=== PATIENT | female | born 1965 | race Asian ===

== ENCOUNTER 2017-05-01 09:09 | Day surgery (SDC) | payer OTHER ==
[2017-05-01] MEDS ORDERED: LACTATED RINGERS 1,000 ML IV ONE ×2 (09:23→11:26)
[2017-05-01] MEDS ORDERED: fentaNYL 100 MCG/2 ML VIAL IVP ONE (10:48)
[2017-05-01] MEDS ORDERED: MIDAZOLAM 2 MG/2 ML VIAL IVP ONE (10:48)
[2017-05-01 12:19] VITALS: BP 119/60
== END 2017-05-01 09:10 | disposition home or self-care (01) ==
LOC: SDS 09:09
PROVIDERS: ATTEND Surgery
PROC: 0DBN8ZX Excision of Sigmoid Colon, Via Natural or Artificial Opening Endoscopic, Diagnostic (ICD-10-PCS; principal; 2017-05-01 10:30)
DX: Z12.11 Encounter for screening for malignant neoplasm of colon (principal); D12.5 Benign neoplasm of sigmoid colon; K64.9 Unspecified hemorrhoids; Z83.3 Family history of diabetes mellitus; Z82.3 Family history of stroke; F17.210 Nicotine dependence, cigarettes, uncomplicated
CPT/HCPCS: 45385; J7120; 85025; 88305

== ENCOUNTER 2021-07-07 07:46 | Outpatient (CLI) | payer OTHER ==
--- NOTE | 2021-07-08 08:42 | Mammography Report ---
BILATERAL DIGITAL DIAGNOSTIC MAMMOGRAM 3D/2D: 07/07/2021 CLINICAL: Occasional pain in both breasts. Comparison is made to exams dated: 05/17/2020 mammogram, 09/17/2018 mammogram, 03/21/2017 mammogram, and 06/02/2015 mammogram - [facility]. The tissue of both breasts is extremely dense, which lowers the sensitivity of mammography. No significant masses, calcifications, or other findings are seen in either breast. Bilateral diffuse breast pain. IMPRESSION: NEGATIVE There is no mammographic evidence of malignancy. A 1 year screening mammogram with tomosynthesis is recommended. Exam findings were conveyed to the patient. This exam was interpreted at Station ID: [id number]. NOTE: For mammograms, a report in lay terms will be sent to the patient. Approximately 15% of breast malignancies will not be visualized mammographically. In the management of a palpable breast mass, a negative mammogram must not discourage biopsy of a clinically suspicious lesion. Electronically Signed By: Ganesh Aguilera M.D. slc/:07/07/2021 09:24:54 ACR BI-RADS Category 1: Negative 3341F PARENCHYMAL PATTERN: (VD) - The breast(s) demonstrate(s) extremely dense parenchyma, limiting the sen sitivity of mammography. BI-RADS CATEGORY: (1) - 1 RECOMMENDATION: (ANNUAL) - Recommend routine annual screening mammography. [id number] 1 year screening LATERALITY: (B)
== END 2021-07-07 07:47 | disposition home or self-care (01) ==
LOC: DI 07:46
PROVIDERS: ATTEND Family Medicine
DX: N64.4 Mastodynia (principal)

== ENCOUNTER 2023-11-06 11:21 | Day surgery (SDC) | payer OTHER ==
[2023-11-06] MEDS ORDERED: PROPOFOL 500 MG/50 ML 500 MG/50 ML VIAL ONE (11:43)
[2023-11-06] MEDS ORDERED: LACTATED RINGERS 1,000 ML IV ONE ×2 (11:59→12:43)
--- NOTE | 2023-11-06 12:04 | ANESTHESIA ---
Pre-Anesthesia VS, & Labs - Diagnosis screening - Procedure colonoscopy Vital Signs: Temp Pulse Resp BP Pulse Ox O2 Flow Rate 36.1 C L 73 16 113/77 97 11/06/23 11:32 11/06/23 11:32 11/06/23 11:32 11/06/23 11:32 11/06/23 11:32 Height: 5 ft 2 in Weight (kg): 61.5 kg Body Mass Index: 24.7 BMI Classification: Normal - NPO Other (prep as directed) - Is Patient ?: No Home Medications and Allergies No Known Home Medications 04/27/17 Allergies/Adverse Reactions: Allergies Allergy/AdvReac Type Severity Reaction Status Date / Time No Known Drug Allergies Allergy Verified 11/05/23 13:45 Anes History & Medical History - Anesthetic History Anesthesia Complications: reports: No previous complications - Medical History Cardiovascular: reports: None Pulmonary: reports: None Gastrointestinal: reports: Colon polyps, Hemorrhoids Urinary: reports: None Musculoskeletal: reports: None Endocrine/Autoimmune: reports: None Skin: reports: None - Surgical History General: reports: Colonoscopy Exam General: Alert, Oriented x3, Cooperative Dental: WNL Mouth Opening: Greater than 4 Fingerbreadths Neck Mobility: Normal Mallampati classification: I Thyromental Distance: greater than 6 cm Respiratory: Lungs clear Cardiovascular: Regular rate Plan Anesthesia Type: Total IV Consent for Procedure(s) Verified and Reviewed: Yes Code Status: Attempt Resuscitation ASA classification: 1-Healthy patient Is this case an emergency?: No
[2023-11-06 13:03] VITALS: O2SAT 100
[2023-11-06 13:12] VITALS: BP 118/71
--- NOTE | 2023-11-06 16:25 | ANESTHESIA POST OP EVALUATION ---
Anesthesia Post Eval - Post Anesthesia Eval Vitals: Last Vital Signs Temp 36.0 C L 11/06/23 12:55 Pulse 59 L 11/06/23 13:05 Resp 16 11/06/23 13:05 BP 118/71 11/06/23 13:05 Pulse Ox 100 11/06/23 13:05 O2 Flow Rate CV Function Including HR & BP: Stable Pain Control: Satisfactory Nausea & Vomiting: Negative Mental Status: Baseline Respiratory Status: Airway Patent Hydration Status: Satisfactory Anesthesia Complications: None
== END 2023-11-06 11:22 | disposition home or self-care (01) ==
LOC: SDS 11:21
PROVIDERS: ATTEND Surgery
PROC: 0DBN8ZZ Excision of Sigmoid Colon, Via Natural or Artificial Opening Endoscopic (ICD-10-PCS; principal; 2023-11-06 13:00)
DX: Z12.11 Encounter for screening for malignant neoplasm of colon (principal); K63.5 Polyp of colon; K64.9 Unspecified hemorrhoids
CPT/HCPCS: 45380; J7120